=== PATIENT | male | born 1970 | race Caucasian/White ===

== ENCOUNTER 2022-07-09 14:55 | Outpatient (CLI) | payer BC | END 2022-07-09 23:59 | disposition home or self-care (01) | LOC: RAD 14:55 | PROVIDERS: ATTEND Nurse Practitioner Family | DX: M19.072 Primary osteoarthritis, left ankle and foot (principal); M19.071 Primary osteoarthritis, right ankle and foot; M77.32 Calcaneal spur, left foot | CPT/HCPCS: 73630 ==